=== PATIENT | female | born 1970 | race Caucasian/White ===

== ENCOUNTER → 2021-02-05 | Outpatient (CLI) | payer OTHER ==
[~2021-02-05] MED LIST: NEURONTIN 300300 MG PO; PROZAC20 MG PO; TENORMIN 50 MG50 MG PO; TRAZODONE HCL100 MG PO; ULTRAM50 MG PO; VISTARIL 50 MG50 MG PO
[2021-02-06 08:15] LABS: RHEUMATOID ARTHRITIS FACTOR <10.0 IU/mL (0.0-13.9)
[2021-02-07 00:11] LABS: CCP ANTIBODIES IGG/IGA 4 units (0-19)
== END ==
LOC: LAB 10:49
PROVIDERS: Internal Medicine
DX: D89.89 Other specified disorders involving the immune mechanism, not elsewhere classified (principal); M25.50 Pain in unspecified joint; R76.8 Other specified abnormal immunological findings in serum; M79.643 Pain in unspecified hand; G89.29 Other chronic pain; M35.00 Sjogren syndrome, unspecified; M05.79 Rheumatoid arthritis with rheumatoid factor of multiple sites without organ or systems involvement
CPT/HCPCS: 36415; 83520; 85652; 86140; 86200; 86431